=== PATIENT | male | born 1960 | race Caucasian/White ===

== ENCOUNTER 2019-09-04 17:48 | Emergency (ER) | payer BC, OTHER ==
[2019-09-04] MEDS ORDERED: Sodium Chloride 0.9% 10 ML Syringe FLUSH PRN (18:07)
--- NOTE | 2019-09-04 18:09 | EDM.PDOC ---
<Kvein Cerrato - Last Filed: 09/04/19 21:49> ED HPI GENERAL MEDICAL PROBLEM - General Chief Complaint: Chest Pain Stated Complaint: CHEST PAINS Time Seen by Provider: 09/04/19 18:06 - Related Data Allergies Allergy/AdvReac Type Severity Reaction Status Date / Time No Known Allergies Allergy Verified 09/04/19 17:56 Home Meds: Home Meds Albuterol Sulfate [Proair Hfa] 1 - 2 puff INH Q4H PRN 09/04/19 [History] Fluticasone/Salmeterol [Advair 500-50] 1 puff INH DAILY 09/04/19 [History] Montelukast [Singulair] 10 mg PO DAILY 09/04/19 [History] Pravastatin Sodium 10 mg PO DAILY 09/04/19 [History] amLODIPine [Norvasc] 5 mg PO DAILY 09/04/19 [History] hydroCHLOROthiazide [Hydrochlorothiazide] 25 mg PO DAILY 09/04/19 [History] Course - Vital Signs Last Recorded V/S: Last Vital Signs Temp 98.0 F 09/04/19 17:50 Pulse 83 09/04/19 17:50 Resp 10 L 09/04/19 17:50 BP 175/99 H 09/04/19 17:50 Pulse Ox 98 09/04/19 17:50 - Orders/Labs/Meds Labs: Laboratory Tests 09/04/19 09/04/19 09/04/19 Range/Units 18:00 18:00 20:40 WBC 7.76 (4.23-9.07) K/mm3 RBC 5.56 (4.63-6.08) M/mm3 Hgb 16.0 (13.7-17.5) gm/dl Hct 48.3 (40.1-51.0) % MCV 86.9 (79.0-92.2) fl MCH 28.8 (25.7-32.2) pg MCHC 33.1 (32.2-35.5) g/dl RDW Std Deviation 41.3 (35.1-43.9) fL Plt Count 271 (163-337) K/mm3 MPV 9.9 (9.4-12.3) fl Neut % (Auto) 71.6 H (34.0-67.9) % Lymph % (Auto) 16.9 L (21.8-53.1) % [place] % (Auto) 8.6 (5.3-12.2) % Eos % (Auto) 2.4 (0.8-7.0) Baso % (Auto) 0.4 (0.1-1.2) % Neut # (Auto) 5.55 H (1.78-5.38) K/mm3 Lymph # (Auto) 1.31 L (1.32-3.57) K/mm3 [place] # (Auto) 0.67 (0.30-0.82) K/mm3 Eos # (Auto) 0.19 (0.04-0.54) K/mm3 Baso # (Auto) 0.03 (0.01-0.08) K/mm3 Sodium 137 (136-145) mEq/L Potassium 3.7 (3.5-5.1) mEq/L Chloride 101 (98-107) mEq/L Carbon Dioxide 29 (21-32) mEq/L Anion Gap 10.7 (5-15) BUN 24 H (7-18) mg/dL Creatinine 1.0 (0.7-1.3) mg/dL Est Cr Clr Drug Dosing 92.72 mL/min Estimated GFR (MDRD) > 60 (>60) mL/min BUN/Creatinine Ratio 24.0 H (14-18) Glucose 98 (80-115) mg/dL Calcium 9.8 (8.5-10.1) mg/dL Total Bilirubin 0.5 (0.2-1.0) mg/dL AST 19 (15-37) U/L ALT 44 (16-63) U/L Alkaline Phosphatase 65 (46-116) U/L Troponin I < 0.017 < 0.017 (0.00-0.056) ng/mL Total Protein 8.6 H (6.4-8.2) g/dl Albumin 4.1 (3.4-5.0) g/dl Globulin 4.5 gm/dL Albumin/Globulin Ratio 0.9 L (1-2) Meds: Medications Discontinued Medications Generic Name Dose Route Start Last Admin Trade Name Freq PRN Reason Stop Dose Admin Sodium Chloride 10 ml 09/04/19 18:07 09/04/19 18:00 Saline Flush FLUSH 10 ml ASDIRECTED PRN Administration Keep Vein Open - Re-Assessments/Exams Free Text/Narrative Re-Assessment/Exam: 09/04/19 21:45 The patient's repeat troponin remains undetectably low. 09/04/19 21:49 Test results discussed with the patient and his . I explained that with today's negative work-up, the patient's chest pain is most likely due to chest wall strain, and is highly unlikely to be due to cardiac ischemia, however, that does not necessarily mean that he does not have underlying coronary artery disease. I recommended that he follow-up with his PCP to discuss the option of an outpatient cardiac stress test. In the meantime, the patient can take over- the-counter Tylenol or ibuprofen as needed for his chest discomfort. Departure - Departure Time of Disposition: 21:51 Disposition: Home, Self-Care 01 Clinical Impression: Atypical chest pain, Chest wall pain Instructions: Chest Wall Pain, [id number] Referrals: Dottie Quevedo MD [Primary Care Provider] - Forms: ED Department Discharge Additional Instructions: You were seen in the emergency room for chest discomfort, made worse with deep breaths and certain movements. Work-up in the ER included blood work that included 2 sets of cardiac enzymes, a chest x-ray, and an ECG. Your entire work-up was unremarkable. You have not suffered a heart attack. You do not have pneumonia. You do not have a collapsed lung. Based on your history, physical exam, and ER tests, the cause of your chest pain is most likely musculoskeletal. We recommend that you take [id number] Tylenol or ibuprofen as needed for discomfort. As discussed, while today's work-up shows that you have not had a heart attack, that does not necessarily mean that you do not have underlying coronary artery disease. For further evaluation in that regard, we recommend that you follow- up with your PCP, Dr. Dottie Quevedo, for further evaluation that could include an outpatient cardiac stress test. If any other problems, please do not hesitate to return to the ER. Sepsis Event Note - Focused Exam Date Exam was Performed: 09/04/19 Time Exam was Performed: 21:49 <Po Antonio - Last Filed: 09/07/19 17:08> ED HPI GENERAL MEDICAL PROBLEM - General Source of Information: Reports: Patient, RN Notes Reviewed - History of Present Illness INITIAL COMMENTS - FREE TEXT/NARRATIVE: 59-year-old male presents to ED by private vehicle with chest discomfort that started earlier today about 7 to 8 hours ago. This is an ache of the left anterior chest without radiation. He does have history of hypertension. Does not smoke. He does not have history of known coronary artery disease. Cardiac disease does run in his family. Pain is worse with deep breathing and with certain types of motion. No known recent injury. Left Chest Pain Score (Numeric/FACES): 3 ED ROS GENERAL - Review of Systems Review Of Systems: See Below Constitutional: Denies: Fever, Chills, Diaphoresis HEENT: Denies: Sinus Problem, Throat Pain Respiratory: Denies: Shortness of Breath, Cough Cardiovascular: Reports: Chest Pain. Denies: Lightheadedness GI/Abdominal: Reports: Abdominal Pain (Yesterday upper abdomen, gone today). Denies: Nausea, Vomiting Musculoskeletal: Denies: Neck Pain, Shoulder Pain, Arm Pain, Back Pain Skin: Reports: No Symptoms Neurological: Denies: Dizziness, Numbness, Tingling ED EXAM, GENERAL - Physical Exam Exam: See Below General Appearance: Alert, No Apparent Distress Eye Exam: Bilateral Eye: PERRL Throat/Mouth: Normal Inspection, Normal Oropharynx Head: Atraumatic Neck: Supple, Full Range of Motion Respiratory/Chest: No Respiratory Distress, Lungs Clear, Normal Breath Sounds, Other (Tenderness of the left sternal border) Cardiovascular: Regular Rate, Rhythm GI/Abdominal: Soft, Non-Tender. No: Guarding Back Exam: No: CVA Tenderness (L), CVA Tenderness (R) Extremities: Normal Inspection, Normal Range of Motion Neurological: Alert, Oriented, No Motor/Sensory Deficits Skin Exam: Warm, Dry, Normal Color EKG INTERPRETATION EKG Date: 09/04/19 Rhythm: NSR (1 PVC present) [place]: Normal P-Wave: Present QRS: Normal ST-T: Normal Course - Orders/Labs/Meds Labs: Laboratory Tests 09/04/19 09/04/19 09/04/19 Range/Units 18:00 18:00 20:40 WBC 7.76 (4.23-9.07) K/mm3 RBC 5.56 (4.63-6.08) M/mm3 Hgb 16.0 (13.7-17.5) gm/dl Hct 48.3 (40.1-51.0) % MCV 86.9 (79.0-92.2) fl MCH 28.8 (25.7-32.2) pg MCHC 33.1 (32.2-35.5) g/dl RDW Std Deviation 41.3 (35.1-43.9) fL Plt Count 271 (163-337) K/mm3 MPV 9.9 (9.4-12.3) fl Neut % (Auto) 71.6 H (34.0-67.9) % Lymph % (Auto) 16.9 L (21.8-53.1) % [place] % (Auto) 8.6 (5.3-12.2) % Eos % (Auto) 2.4 (0.8-7.0) Baso % (Auto) 0.4 (0.1-1.2) % Neut # (Auto) 5.55 H (1.78-5.38) K/mm3 Lymph # (Auto) 1.31 L (1.32-3.57) K/mm3 [place] # (Auto) 0.67 (0.30-0.82) K/mm3 Eos # (Auto) 0.19 (0.04-0.54) K/mm3 Baso # (Auto) 0.03 (0.01-0.08) K/mm3 Sodium 137 (136-145) mEq/L Potassium 3.7 (3.5-5.1) mEq/L Chloride 101 (98-107) mEq/L Carbon Dioxide 29 (21-32) mEq/L Anion Gap 10.7 (5-15) BUN 24 H (7-18) mg/dL Creatinine 1.0 (0.7-1.3) mg/dL Est Cr Clr Drug Dosing 92.72 mL/min Estimated GFR (MDRD) > 60 (>60) mL/min BUN/Creatinine Ratio 24.0 H (14-18) Glucose 98 (80-115) mg/dL Calcium 9.8 (8.5-10.1) mg/dL Total Bilirubin 0.5 (0.2-1.0) mg/dL AST 19 (15-37) U/L ALT 44 (16-63) U/L Alkaline Phosphatase 65 (46-116) U/L Troponin I < 0.017 < 0.017 (0.00-0.056) ng/mL Total Protein 8.6 H (6.4-8.2) g/dl Albumin 4.1 (3.4-5.0) g/dl Globulin 4.5 gm/dL Albumin/Globulin Ratio 0.9 L (1-2) Meds: Medications Discontinued Medications Generic Name Dose Route Start Last Admin Trade Name Freq PRN Reason Stop Dose Admin Sodium Chloride 10 ml 09/04/19 18:07 09/04/19 18:00 Saline Flush FLUSH 10 ml ASDIRECTED PRN Administration Keep Vein Open - Re-Assessments/Exams Free Text/Narrative Re-Assessment/Exam: 09/04/19 19:23 Hest x-ray normal, troponin did come back normal, other labs also relatively normal. He will does have a slight ache of his left anterior chest that continues to be worse with twisting of his upper body. As noted on exam he does have tenderness of the left sternal border consistent with costochondritis or chest wall discomfort. Have discussed with patient and family that it is probably safe to go home at this time but it would be even better to get a second negative troponin. They are willing for that and in agreement with that plan. It is now after change of shift so care will be transferred to Dr. Cerrato with plan for repeat troponin in about 90 minutes. Departure - Departure Condition: Fair Sepsis Event Note - Evaluation Sepsis Screening Result: No Definite Risk - Focused Exam Date Exam was Performed: 09/07/19 Time Exam was Performed: 17:08
--- NOTE | 2019-09-04 18:29 | CR ---
Chest: Portable view of the chest was obtained. Comparison: No previous chest x-ray. Heart size is normal. Tortuous thoracic aorta is noted. Lungs are clear with no acute parenchymal change is seen. Bony structures are grossly intact. Impression: 1. Nothing acute is appreciated on portable chest x-ray. Diagnostic code #1 This report was dictated in [place] Standard Time
== END 2019-09-04 22:04 | disposition home or self-care (01) ==
LOC: JD.ED 17:48
DX: R07.89 Other chest pain (principal); I10 Essential (primary) hypertension; Z79.899 Other long term (current) drug therapy
CPT/HCPCS: 36415; 71045; 71045-26; 80053; 84484; 85025; 93005; 93010; 99284; 99285-25

== ENCOUNTER 2021-09-12 16:55 | Inpatient (IN) | payer BC, OTHER ==
[2021-09-12] MEDS ORDERED: Sodium Chloride 0.9% 10 ML Syringe FLUSH PRN ×2 (17:09→17:19)
[2021-09-12] MEDS ORDERED: Diltiazem 50 MG/10 ML SDV IVPUSH ONE (17:21)
[2021-09-12] MEDS: Diltiazem IR 60 MG Tab PO SCH (21:00)
[2021-09-12] MEDS: Apixaban 5 MG Tab PO SCH (21:00)
[2021-09-12] MEDS: Formoterol/Mometasone 200-5 MCG 8.8 GM Inhaler IH SCH (21:28)
[2021-09-13] MEDS: Diltiazem IR 60 MG Tab PO SCH (05:10)
[2021-09-13] MEDS: Apixaban 5 MG Tab PO SCH ×2 (08:53→20:12)
[2021-09-13] MEDS: Hydrochlorothiazide 25 MG Tab PO SCH (08:54)
[2021-09-13] MEDS: Aspirin 81 MG Tab.Chew PO SCH (08:54)
[2021-09-13] MEDS ORDERED: Montelukast 10 MG Tab PO SCH (09:00)
[2021-09-13] MEDS: Formoterol/Mometasone 200-5 MCG 8.8 GM Inhaler IH SCH ×2 (09:13→20:43)
[2021-09-13] MEDS ORDERED: Diltiazem 180 MG Cap.CD PO SCH (10:15)
[2021-09-13] MEDS ORDERED: Diltiazem 100 MG AdvVial ONE (13:50)
[2021-09-13] MEDS: Diltiazem 100 MG in Sodium Chloride 0.9% 100 ML IV SCH (14:12)
[2021-09-13] MEDS: Montelukast 10 MG Tab PO SCH (20:12)
[2021-09-14] MEDS: Diltiazem 100 MG in Sodium Chloride 0.9% 100 ML IV SCH (02:56)
[2021-09-14] MEDS: Apixaban 5 MG Tab PO SCH ×2 (08:18→20:51)
[2021-09-14] MEDS: Aspirin 81 MG Tab.Chew PO SCH (08:19)
[2021-09-14] MEDS: Formoterol/Mometasone 200-5 MCG 8.8 GM Inhaler IH SCH ×2 (08:36→20:27)
[2021-09-14] MEDS ORDERED: Diltiazem 240 MG Cap.ER PO SCH (09:00)
[2021-09-14] MEDS: Hydrochlorothiazide 25 MG Tab PO SCH (10:09)
[2021-09-14] MEDS: Montelukast 10 MG Tab PO SCH (20:51)
[2021-09-15] MEDS: Hydrochlorothiazide 25 MG Tab PO SCH (08:40)
[2021-09-15] MEDS: Formoterol/Mometasone 200-5 MCG 8.8 GM Inhaler IH SCH (08:40)
[2021-09-15] MEDS: Aspirin 81 MG Tab.Chew PO SCH (08:40)
[2021-09-15] MEDS: Apixaban 5 MG Tab PO SCH (08:40)
[2021-09-15] MEDS ORDERED: Amiodarone 200 MG Tab PO ONE (09:30)
[2021-09-15] MEDS ORDERED: Losartan 25 MG Tab PO SCH (09:30)
[2021-09-15] MEDS ORDERED: Albuterol 6.7 GM Inhaler INH PRN (13:45)
[2021-09-15] MEDS ORDERED: metFORMIN 500 MG Tab PO SCH (17:00)
[2021-09-16] MEDS ORDERED: Amiodarone 200 MG Tab PO SCH (09:00)
== END 2021-09-15 15:35 | disposition home or self-care (01) | DRG 201 ==
LOC: JD.ED 16:55 → JD.ICU 19:25
PROVIDERS: ADMIT Pediatrics; ATTEND Internal Medicine
DX: I48.91 Unspecified atrial fibrillation (principal); J45.909 Unspecified asthma, uncomplicated; R42 Dizziness and giddiness; I10 Essential (primary) hypertension; E78.00 Pure hypercholesterolemia, unspecified; K21.9 Gastro-esophageal reflux disease without esophagitis; M19.90 Unspecified osteoarthritis, unspecified site; Z86.16 Personal history of COVID-19; Z87.01 Personal history of pneumonia (recurrent); Z79.82 Long term (current) use of aspirin; Z79.899 Other long term (current) drug therapy; Z88.7 Allergy status to serum and vaccine; Z88.8 Allergy status to other drugs, medicaments and biological substances; R73.03 Prediabetes; E66.3 Overweight; Z68.26 Body mass index [BMI] 26.0-26.9, adult
CPT/HCPCS: 36415; 71045; 71045-26; 80048; 80053; 83036; 83735; 84484; 85025; 93005; 93010; 94640; 96374; 99285; 99285-25; A9270-GY; J0282; J3490

== ENCOUNTER 2022-05-14 09:27 | Day surgery (SDC) | payer BC ==
[~2022-05-14 09:27] MED LIST: Acetaminophen 325 MG Tab PO SCH; Morphine 8 MG, EPINEPHrine 0.3 MG, Cefuroxime 750 MG, Ketorolac 30 MG, Sodium Chloride ... PRN; Pregabalin 25 MG Cap PO SCH; oxyCODONE ER 10 MG TAB.ER PO SCH
[2022-05-14] MEDS ORDERED: Vancomycin 1 GM SDV ONE (09:42)
[2022-05-14] MEDS ORDERED: Midazolam 1 MG/ML 2 ML SDV ONE (10:10)
[2022-05-14] MEDS ORDERED: fentaNYL 100 MCG/2 ML SDV ONE (10:11)
[2022-05-14] MEDS ORDERED: ceFAZolin 2 GM Vial ONE (10:11)
[2022-05-14] MEDS ORDERED: Lidocaine 1% 4 ML ONE (10:11)
[2022-05-14] MEDS ORDERED: Propofol 200 MG/20 ML SDV ONE ×4 (10:11→11:34)
[2022-05-14] MEDS ORDERED: diphenhydrAMINE 50 MG/ML SDV IVPUSH PRN (10:48)
[2022-05-14] MEDS ORDERED: fentaNYL 100 MCG/2 ML SDV IVPUSH PRN (10:48)
[2022-05-14] MEDS ORDERED: Ondansetron 4 MG/2 ML SDV IVPUSH PRN (10:48)
[2022-05-14] MEDS ORDERED: ePHEDrine 50 MG/ML SDV ONE (10:55)
[2022-05-14] MEDS ORDERED: Ondansetron 4 MG/2 ML SDV ONE (10:55)
[2022-05-14] MEDS ORDERED: Lactated Ringers 1,000 ML ONE (11:08)
[2022-05-14] MEDS ORDERED: Dexmedetomidine 200 MCG/2 ML SDV ONE (11:47)
[2022-05-14] MEDS ORDERED: Lactated Ringers 1,000 ML IV SCH (12:00)
[2022-05-14] MEDS ORDERED: EPINEPHrine 1 MG/ML SDV ONE (12:17)
[2022-05-14] MEDS ORDERED: Ropivacaine 0.5% 5 MG/ML 30 ML SDV ONE (12:17)
[2022-05-14] MEDS ORDERED: oxyCODONE 5 MG Tab PO PRN (14:45)
== END 2022-05-14 15:40 | disposition home or self-care (01) ==
LOC: JD.SDS 09:27
PROVIDERS: ATTEND Orthopaedic Surgery
DX: M17.12 Unilateral primary osteoarthritis, left knee (principal); I10 Essential (primary) hypertension; E78.00 Pure hypercholesterolemia, unspecified; I25.10 Atherosclerotic heart disease of native coronary artery without angina pectoris; I48.0 Paroxysmal atrial fibrillation; R73.9 Hyperglycemia, unspecified; J45.40 Moderate persistent asthma, uncomplicated; K21.9 Gastro-esophageal reflux disease without esophagitis; I48.91 Unspecified atrial fibrillation; Z79.899 Other long term (current) drug therapy; Z88.7 Allergy status to serum and vaccine; Z88.8 Allergy status to other drugs, medicaments and biological substances; Z98.890 Other specified postprocedural states; Z86.16 Personal history of COVID-19
CPT/HCPCS: 0055T; 27447; 36415; 73560; 85610; 85730; 97110; 97116; 97161; A9270; C1713; C1776; J0171; J0690; J0697; J1885; J2250; J2270; J2405; J2704; J2795; J3010; J3370; J7120; 01402; 64450; 76942

== ENCOUNTER 2024-05-08 16:12 | Emergency (ER) | payer BC ==
[2024-05-08] MEDS: Lactated Ringers 1,000 ML IV ONE (16:22)
[2024-05-08] MEDS ORDERED: Sodium Chloride 0.9% 10 ML Syringe FLUSH PRN ×2 (16:40→16:41)
[2024-05-08] MEDS ORDERED: Iopamidol 612 MG/ML 30 ML SDV IV ONE (16:41)
[2024-05-08] MEDS: Sodium Chloride 0.9% 10 ML Syringe FLUSH PRN (16:50)
[2024-05-08] MEDS: Iopamidol 612 MG/ML 100 ML Bottle IVPUSH ONE (16:50)
[2024-05-08 16:52] LABS: BASOPHILS PERCENT AUTO 0.1 % (0.0-1.0); EOSINOPHILS PERCENT AUTO 0.1 % (0.0-6.0); HEMATOCRIT 47.1 % (42.0-52.0); HEMOGLOBIN 15.4 gm/dl (14.0-18.0); IMMATURE GRAN ABSOLUTE AUTO 0.06 K/mm3 (0.00-0.05); IMMATURE GRAN PERCENT AUTO 0.4 % (0.0-0.4); LYMPHOCYTES ABSOLUTE AUTO 0.6 K/mm3 (1.0-4.8); LYMPHOCYTES PERCENT AUTO 4.2 % (24.0-44.0); MEAN CORPUSCULAR HEMOGLOBIN 28.9 pg (28.0-32.0); MEAN CORPUSCULAR HGB CONC 32.7 g/dl (32.0-36.0); MEAN CORPUSCULAR VOLUME 88.4 fl (83.0-99.0); MEAN PLATELET VOLUME 9.6 fl (9.4-12.4); MONOCYTES ABSOLUTE AUTO 0.7 K/mm3 (0.0-0.8); MONOCYTES PERCENT AUTO 4.5 % (0.0-8.0); NEUTROPHILS ABSOLUTE AUTO 13.2 K/mm3 (1.8-7.7); NEUTROPHILS PERCENT AUTO 90.7 % (41.0-71.0); PLATELET COUNT,PLT 247 K/mm3 (150-400); RED BLOOD CELL COUNT 5.33 M/mm3 (4.52-5.90); WHITE BLOOD CELL COUNT,WBC 14.51 K/mm3 (3.9-11.3)
[2024-05-08 16:57] LABS: INR 1.18; PROTHROMBIN TIME 12.4 SECONDS (9.7-12.0)
[2024-05-08 17:03] LABS: A/G RATIO 1.1 (1-2); ANION GAP 14.2 (5-15); BILIRUBIN TOTAL 0.4 mg/dL (0.2-1.0); BUN/CREATININE RATIO 15.8 (14-18); CREATININE 1.2 mg/dL (0.7-1.3); EST CRCL DRUG DOSING (CG) 70.4 mL/min; PROTEIN TOTAL,TP 7.7 g/dl (6.4-8.2)
[2024-05-08 17:13] LABS: POTASSIUM,K 4.2 mEq/L (3.5-5.1)
[2024-05-08] MEDS: Diltiazem 25 MG/5 ML SDV IVPUSH ONE (17:14)
[2024-05-08 18:37] LABS: APPEARANCE,URINE CLEAR (Clear); BILIRUBIN,URINE NEGATIVE (Negative); COLOR,URINE YELLOW (Yellow); GLUCOSE,URINE NEGATIVE (Negative); KETONES,URINE NEGATIVE (Negative); LEUKOCYTE ESTERASE,URINE NEGATIVE (Negative); NITRITE,URINE NEGATIVE (Negative); OCCULT BLOOD,URINE TRACE-LYSED (Negative); PH,URINE 6.5 (5.0-8.0); PROTEIN,URINE NEGATIVE (Negative); UROBILINOGEN,URINE 0.2 (0.2-1.0)
[2024-05-08 19:11] LABS: BACTERIA,URINE FEW /hpf (FEW); MUCUS,URINE FEW /hpf (FEW); SQUAMOUS EPITHELIAL CELLS,UR 0-5 /hpf (0-5); WBC,URINE 0-5 /hpf (0-5)
[2024-05-08] MEDS: Lidocaine 1% 20 ML MDV INJECT ONE (19:30)
[2024-05-08] MEDS ORDERED: Cephalexin 500 MG Cap PO ONE (20:23)
== END 2024-05-08 20:39 | disposition home or self-care (01) ==
LOC: JD.ED 16:12
DX: S01.312A Laceration without foreign body of left ear, initial encounter (principal); S20.222A Contusion of left back wall of thorax, initial encounter; E78.00 Pure hypercholesterolemia, unspecified; I10 Essential (primary) hypertension; J45.909 Unspecified asthma, uncomplicated; Z86.16 Personal history of COVID-19; Z88.8 Allergy status to other drugs, medicaments and biological substances; Z88.7 Allergy status to serum and vaccine; Z88.1 Allergy status to other antibiotic agents; V89.2XXA Person injured in unspecified motor-vehicle accident, traffic, initial encounter
CPT/HCPCS: 12015; 36415; 70450; 71045; 71260; 72125; 74177; 80053; 81001; 83605; 83690; 84484; 85025; 85610; 85730; 86900; 86901; 93005; 96361; 96374; 99284; J3490; J7120; Q9967; 12004; 93010